=== PATIENT | male | born 1960 | race Caucasian/White ===

== ENCOUNTER 2020-07-12 04:23 | Inpatient (IN) | payer MEDICARE, OTHER ==
[~2020-07-12] VITALS: Ht 180.3 cm; Wt 124.7 kg
[2020-07-12] MEDS ORDERED: PIPERACILLIN/TAZOBACTAM 3.375 GM in SODIUM CHLORIDE 0.9% 50ML 50 ML IV STA (04:33)
[2020-07-12] MEDS ORDERED: SODIUM CHLORIDE 0.9% 1000ML 1,000 ML IV STA (04:33)
[2020-07-12 05:16] LABS: ABG HCO3 22 mmol/L (22-26); ABG PCO2 33 mmHg (35-45); ABG PH 7.43 (7.35-7.45); ABG PO2 74 mmHg (80-105); ABG TCO2 23
[2020-07-12 05:18] LABS: BASOPHILS # (AUTO) 0.1 (0.0-0.1); BASOPHILS % 0.4 % (0.0-1.0); EOSINOPHILS % 0.2 % (0.0-6.0); HEMATOCRIT 31.6 % (38.2-49.6); HEMOGLOBIN 10.4 g/dL (14.0-18.0); LYMPHOCYTES % 3.8 % (18.0-39.1); MEAN CORPUSCULAR HEMOGLOBIN 25.3 pg (28-32); MEAN CORPUSCULAR HGB CONC 32.9 g/dL (31-35); MEAN CORPUSCULAR VOLUME 76.9 fL (81-99); MONOCYTES # (AUTO) 1.1 (0.2-0.8); MONOCYTES % 4.5 % (4.4-11.3); NEUTROPHILS # (AUTO) 22.3 (2.1-6.9); NEUTROPHILS % 88.3 % (38.7-80.0); PLATELET COUNT 275 x10e3/uL (140-360); RED BLOOD COUNT 4.11 x10e6/uL (4.3-5.7); RED CELL DISTRIBUTION WIDTH 17.9 % (11.7-14.4)
[2020-07-12 05:40] LABS: ALBUMIN 2.7 g/dL (3.5-5.0); ALBUMIN/GLOBULIN RATIO 0.5 (0.8-2.0); ANION GAP 19.4 mmol/L (8-16); CALCIUM 8.8 mg/dL (8.4-10.2); CREATININE, SERUM 2.75 mg/dL (0.72-1.25); POTASSIUM 5.4 mmol/L (3.5-5.1)
[2020-07-12 05:47] LABS: CREATINE KINASE MB 2.9 ng/mL (0-5.0)
[2020-07-12 05:49] LABS: B-TYPE NATRIURETIC PEPTIDE2 171.9 pg/mL (0-100)
[2020-07-12 06:05] LABS: CLARITY,URINE CLOUDY (CLEAR); COLOR,URINE YELLOW (YELLOW); KETONES,URINE NEGATIVE (NEGATIVE); LEUKOCYTE ESTERASE ,URINE LARGE (NEGATIVE); NITRITE,URINE NEGATIVE (NEGATIVE); PROTEIN,URINE DIPSTICK 2+ (NEGATIVE); URINE UROBILINOGEN 0.2 mg/dL (0.2 - 1)
[2020-07-12 06:28] LABS: BACTERIA,URINE MANY /HPF; WBC,URINE (MAN) >50 /HPF (0-5)
[2020-07-12 06:29] LABS: EPITHELIAL CELLS,URINE FEW /LPF
[2020-07-12] MEDS ORDERED: SODIUM CHLORIDE 0.9% 1000ML 1,000 ML IV SCH (06:45)
[2020-07-12] MEDS ORDERED: ONDANSETRON HCL INJ 2MG/ML 2ML 2 MG/ML VIAL IV PRN ×2 (07:15→11:45)
[2020-07-12] MEDS ORDERED: MORPHINE SULFATE INJ 4 MG/ML INJ 1ML IV PRN (07:15)
[2020-07-12] MEDS ORDERED: SOD POLYSTYRENE SULFONATE SUSP 15 GM/60 ML BTL PO SCH (07:30)
[2020-07-12 08:00] LABS: ANISOCYTOSIS SLIGHT; BAND NEUTROPHILS % (MANUAL) 3 %; LYMPHOCYTES % (MANUAL) 5 % (19-48); MONOCYTES % (MANUAL) 6 % (3.4-9.0); NEUTROPHILS % (MANUAL) 86 % (40-74); PLATELET ESTIMATE ADEQUATE; PLATELET MORPHOLOGY COMMENT NORMAL; RBC MORPHOLOGY COMMENT NORMAL
[2020-07-12 08:01] LABS: MICROCYTOSIS SLIGHT
[2020-07-12] MEDS ORDERED: ALBUTEROL/IPRATROPIUM 3 ML NEB NEB PRN (11:45)
[2020-07-12] MEDS ORDERED: DIPHENHYDRAMINE HCL 25 MG CAP PO PRN (11:45)
[2020-07-12] MEDS ORDERED: POTASSIUM CHLORIDE 20 MEQ TAB CR PO PRN (11:45)
[2020-07-12] MEDS ORDERED: BENZONATATE 100 MG CAP PO PRN (11:45)
[2020-07-12] MEDS ORDERED: DOCUSATE SODIUM 100 MG CAP PO PRN (11:45)
[2020-07-12] MEDS ORDERED: HYDRALAZINE HCL 20 MG/ML VIAL IV PRN (11:45)
[2020-07-12] MEDS ORDERED: DEXTROSE 50% SYRINGE 50 ML IV PRN ×2 (11:45→14:15)
[2020-07-12 12:59] LABS: ANION GAP 15.8 mmol/L (8-16); CALCIUM 8.4 mg/dL (8.4-10.2); CREATININE, SERUM 2.14 mg/dL (0.72-1.25); POTASSIUM 4.8 mmol/L (3.5-5.1)
[2020-07-12] MEDS ORDERED: FUROSEMIDE INJ 10 MG/ML 2 ML VIAL IV ONE (13:00)
[2020-07-12 13:02] LABS: INR 0.92; PROTHROMBIN TIME 12.9 seconds (11.9-14.5)
[2020-07-12] MEDS ORDERED: MINERAL OIL 132 ML BTL PR ONE (13:15)
[2020-07-12] MEDS ORDERED: MEROPENEM 500 MG in SODIUM CHLORIDE 0.9% 50ML 50 ML IV SCH (14:00)
[2020-07-12] MEDS: METOCLOPRAMIDE HCL 10 MG/2ML VIAL IV SCH ×2 (14:11→21:50)
[2020-07-12] MEDS: LACTULOSE SYRUP 20 GM/30 ML UDC PO SCH ×2 (15:00→21:50)
[2020-07-12 15:51] VITALS: BP 148/79
[2020-07-12 15:58] VITALS: BP 145/79
[2020-07-12 16:00] VITALS: BP 145/79
[2020-07-12] MEDS ORDERED: DEXTROSE 5%/0.45% SOD CHL 1,000 ML IV ONE (16:00)
[2020-07-12] MEDS: DOCUSATE SODIUM 100 MG CAP PO SCH (16:08)
[2020-07-12] MEDS: INSULIN REGULAR, HUMAN 100 UNIT/1 ML 3ML VIAL SQ SCH ×2 (16:19→21:50)
[2020-07-12] MEDS ORDERED: ENOXAPARIN SOD INJ 40 MG/0.4 ML SYR SC SCH (17:00)
[2020-07-12] MEDS ORDERED: MS CONTIN15 MG PO (18:36)
[2020-07-12] MEDS ORDERED: BISACODYL5 MG PO (18:36)
[2020-07-12] MEDS ORDERED: AMITRIPTYLINE H25 MG PO (18:36)
[2020-07-12] MEDS ORDERED: LACTULOSE20 GM/30 M PO (18:36)
[2020-07-12] MEDS ORDERED: SIMETHICONE80 MG PO (18:36)
[2020-07-12] MEDS ORDERED: VENTOLIN HFA18 GM INH (18:36)
[2020-07-12] MEDS ORDERED: PROTONIX40 MG PO (18:36)
[2020-07-12] MEDS ORDERED: GABAPENTIN300 MG PO (18:36)
[2020-07-12] MEDS ORDERED: ZINC-22050 MG PO (18:36)
[2020-07-12] MEDS ORDERED: NOVOLOG100 UNIT/1 SC (18:36)
[2020-07-12] MEDS ORDERED: LANTUS 3ML100 UNITS/ SC ×2 (18:36)
[2020-07-12] MEDS ORDERED: IMODIUM A-D2 M2 PO (18:36)
[2020-07-12] MEDS ORDERED: FLOVENT HFA12 G1 INH (18:36)
[2020-07-12] MEDS ORDERED: GLIMEPIRIDE2 MG PO (18:36)
[2020-07-12] MEDS ORDERED: DOXYCYCLINE MO100 MG PO (18:36)
[2020-07-12] MEDS ORDERED: MORPHINE SULFAT30 M2 PO (18:36)
[2020-07-12] MEDS ORDERED: CYCLOBENZAPRINE5 MG PO (18:36)
[2020-07-12] MEDS ORDERED: FERROUS SULFAT325 MG PO (18:36)
[2020-07-12] MEDS ORDERED: SENNA LAX8.6 MG PO (18:36)
[2020-07-12] MEDS ORDERED: MULTIVITAMINS1 EAC6 PO (18:36)
[2020-07-12] MEDS ORDERED: AQUAPHOR99 GM TOP (18:36)
[2020-07-12] MEDS ORDERED: VITAMIN C500 MG PO (18:36)
[2020-07-12] MEDS ORDERED: OXYCODONE HCL5 MG PO (18:36)
[2020-07-12 20:00] VITALS: BP 141/66
[2020-07-12 21:00] VITALS: BP 141/66
[2020-07-12] MEDS ORDERED: SODIUM CHLORIDE 0.9% 250ML 250 ML ONE (21:58)
[2020-07-12] MEDS: MEROPENEM 1GM / NS 100ML 100 ML IV SCH (22:25)
[2020-07-13] VITALS (9 sets, daily range): BP systolic 127–156; BP diastolic 66–86
[2020-07-13] MEDS: PANTOPRAZOLE SOD 40 MG TABEC PO SCH (06:15)
[2020-07-13] MEDS: METOCLOPRAMIDE HCL 10 MG/2ML VIAL IV SCH ×3 (06:15→22:00)
[2020-07-13] MEDS: MEROPENEM 1GM / NS 100ML 100 ML IV SCH (06:15)
[2020-07-13 06:46] LABS: BASOPHILS # (AUTO) 0.1 (0.0-0.1); BASOPHILS % 0.3 % (0.0-1.0); EOSINOPHILS # (AUTO) 0.3 (0.0-0.4); EOSINOPHILS % 1.2 % (0.0-6.0); HEMATOCRIT 28.3 % (38.2-49.6); HEMOGLOBIN 9.3 g/dL (14.0-18.0); LYMPHOCYTES # (AUTO) 1.6 (1.0-3.2); LYMPHOCYTES % 7.4 % (18.0-39.1); MEAN CORPUSCULAR HEMOGLOBIN 25.3 pg (28-32); MEAN CORPUSCULAR HGB CONC 32.9 g/dL (31-35); MEAN CORPUSCULAR VOLUME 76.9 fL (81-99); MONOCYTES % 4.6 % (4.4-11.3); NEUTROPHILS # (AUTO) 17.6 (2.1-6.9); NEUTROPHILS % 84.6 % (38.7-80.0); PLATELET COUNT 263 x10e3/uL (140-360); RED BLOOD COUNT 3.68 x10e6/uL (4.3-5.7); RED CELL DISTRIBUTION WIDTH 18.3 % (11.7-14.4)
[2020-07-13 07:01] LABS: ANION GAP 16.6 mmol/L (8-16); CALCIUM 8.8 mg/dL (8.4-10.2); CREATININE, SERUM 1.38 mg/dL (0.72-1.25); POTASSIUM 3.6 mmol/L (3.5-5.1)
[2020-07-13 07:20] LABS: MAGNESIUM 1.8 MG/DL (1.3-2.1); PHOSPHORUS 4.7 MG/DL (2.3-4.7)
[2020-07-13] MEDS: INSULIN REGULAR, HUMAN 100 UNIT/1 ML 3ML VIAL SQ SCH ×4 (07:30→21:00)
[2020-07-13] MEDS: DOCUSATE SODIUM 100 MG CAP PO SCH ×2 (09:30→17:07)
[2020-07-13] MEDS: LACTULOSE SYRUP 20 GM/30 ML UDC PO SCH ×3 (09:31→21:00)
[2020-07-13] MEDS ORDERED: SODIUM HYPOCHLORITE 0.25% 480 ML SOLN IR ONE (11:00)
[2020-07-13] MEDS: FERROUS SULFATE 325 MG TAB PO SCH (12:00)
[2020-07-13] MEDS: VANCOMYCIN 1GM/NS 250 ML 250 ML IV SCH (12:14)
[2020-07-13] MEDS: MEROPENEM 500 MG in SODIUM CHLORIDE 0.9% 50ML 50 ML IV SCH ×2 (13:17→22:00)
[2020-07-13] MEDS: OXYCODONE HCL IR 5 MG TAB PO PRN (17:07)
[2020-07-13] MEDS ORDERED: INSULIN GLARGINE SC SCH (21:00)
[2020-07-13] MEDS: AMITRIPTYLINE HCL 25 MG TAB PO SCH (21:00)
[2020-07-13] MEDS: MORPHINE SULFATE 30 MG TAB ER PO SCH (21:00)
[2020-07-13] MEDS: INSULIN GLARGINE 100 UNITS/ML VIAL SQ SCH (21:00)
[2020-07-14] VITALS (8 sets, daily range): BP systolic 126–169; BP diastolic 70–84
[2020-07-14] MEDS: OXYCODONE HCL IR 5 MG TAB PO PRN ×2 (01:07→20:30)
[2020-07-14] MEDS: METOCLOPRAMIDE HCL 10 MG/2ML VIAL IV SCH ×3 (05:11→22:00)
[2020-07-14] MEDS: MEROPENEM 500 MG in SODIUM CHLORIDE 0.9% 50ML 50 ML IV SCH ×3 (05:11→22:00)
[2020-07-14] MEDS: INSULIN REGULAR, HUMAN 100 UNIT/1 ML 3ML VIAL SQ SCH ×4 (07:30→21:00)
[2020-07-14] MEDS: PANTOPRAZOLE SOD 40 MG TABEC PO SCH (08:00)
[2020-07-14] MEDS ORDERED: PANTOPRAZOLE SODIUM 40 MG SUSPDR.PKT PO SCH (09:00)
[2020-07-14] MEDS ORDERED: INSULIN GLARGINE SC SCH (09:00)
[2020-07-14] MEDS: LACTULOSE SYRUP 20 GM/30 ML UDC PO SCH ×3 (09:25→21:00)
[2020-07-14] MEDS: DOCUSATE SODIUM 100 MG CAP PO SCH ×2 (09:25→17:07)
[2020-07-14] MEDS: SENNOSIDES 8.6 MG TAB PO SCH (09:27)
[2020-07-14] MEDS: MORPHINE SULFATE 30 MG TAB ER PO SCH ×2 (09:27→21:00)
[2020-07-14] MEDS: MULTIVITAMINS/MINERALS TAB PO SCH (09:27)
[2020-07-14] MEDS: INSULIN GLARGINE 100 UNITS/ML VIAL SQ SCH ×2 (09:28→21:00)
[2020-07-14] MEDS: VANCOMYCIN 1GM/NS 250 ML 250 ML IV SCH (09:29)
[2020-07-14 11:07] LABS: BASOPHILS # (AUTO) 0.1 (0.0-0.1); BASOPHILS % 0.7 % (0.0-1.0); EOSINOPHILS # (AUTO) 0.3 (0.0-0.4); EOSINOPHILS % 2.9 % (0.0-6.0); HEMATOCRIT 28.9 % (38.2-49.6); LYMPHOCYTES # (AUTO) 1.7 (1.0-3.2); LYMPHOCYTES % 14.1 % (18.0-39.1); MEAN CORPUSCULAR HEMOGLOBIN 24.9 pg (28-32); MEAN CORPUSCULAR HGB CONC 31.1 g/dL (31-35); MEAN CORPUSCULAR VOLUME 79.8 fL (81-99); MONOCYTES # (AUTO) 0.8 (0.2-0.8); MONOCYTES % 6.5 % (4.4-11.3); NEUTROPHILS # (AUTO) 8.5 (2.1-6.9); PLATELET COUNT 240 x10e3/uL (140-360); RED BLOOD COUNT 3.62 x10e6/uL (4.3-5.7); RED CELL DISTRIBUTION WIDTH 18.5 % (11.7-14.4)
[2020-07-14 11:28] LABS: ANION GAP 13.7 mmol/L (8-16); BLOOD UREA NITROGEN 17 mg/dL (7-26); BUN/CREATININE RATIO 17 (6-25); CALCIUM 8.7 mg/dL (8.4-10.2); CARBON DIOXIDE 25 mmol/L (22-29); CHLORIDE 103 mmol/L (98-107); CREATININE, SERUM 1.02 mg/dL (0.72-1.25); EST GLOMERULAR FILTRATION RATE > 60 ML/MIN (60-); GLUCOSE 173 mg/dL (74-118); POTASSIUM 3.7 mmol/L (3.5-5.1); SODIUM 138 mmol/L (136-145)
[2020-07-14] MEDS ORDERED: ONDANSETRON HCL 4 MG ORAL DISINTEGRATING TAB PO PRN (16:15)
[2020-07-14] MEDS: NICOTINE 21 MG/EA PATCH TOP SCH (18:48)
[2020-07-14] MEDS: AMITRIPTYLINE HCL 25 MG TAB PO SCH (21:00)
[2020-07-15] VITALS (7 sets, daily range): BP systolic 134–171; BP diastolic 80–91
[2020-07-15] MEDS: MEROPENEM 500 MG in SODIUM CHLORIDE 0.9% 50ML 50 ML IV SCH ×3 (05:30→22:00)
[2020-07-15] MEDS: METOCLOPRAMIDE HCL 10 MG/2ML VIAL IV SCH ×3 (05:30→22:00)
[2020-07-15] MEDS: OXYCODONE HCL IR 5 MG TAB PO PRN ×2 (05:30→14:00)
[2020-07-15 06:32] LABS: BASOPHILS # (AUTO) 0.1 (0.0-0.1); BASOPHILS % 1.2 % (0.0-1.0); EOSINOPHILS # (AUTO) 0.4 (0.0-0.4); EOSINOPHILS % 3.9 % (0.0-6.0); HEMATOCRIT 31.9 % (38.2-49.6); HEMOGLOBIN 10.3 g/dL (14.0-18.0); LYMPHOCYTES # (AUTO) 2.1 (1.0-3.2); MEAN CORPUSCULAR HEMOGLOBIN 25.9 pg (28-32); MEAN CORPUSCULAR HGB CONC 32.3 g/dL (31-35); MEAN CORPUSCULAR VOLUME 80.4 fL (81-99); MONOCYTES # (AUTO) 0.9 (0.2-0.8); MONOCYTES % 7.7 % (4.4-11.3); NEUTROPHILS # (AUTO) 7.1 (2.1-6.9); NEUTROPHILS % 63.3 % (38.7-80.0); PLATELET COUNT 204 x10e3/uL (140-360); RED BLOOD COUNT 3.97 x10e6/uL (4.3-5.7); RED CELL DISTRIBUTION WIDTH 19.5 % (11.7-14.4)
[2020-07-15 06:48] LABS: ANION GAP 15.6 mmol/L (8-16); BLOOD UREA NITROGEN 10 mg/dL (7-26); BUN/CREATININE RATIO 13 (6-25); CARBON DIOXIDE 24 mmol/L (22-29); CHLORIDE 101 mmol/L (98-107); CREATININE, SERUM 0.77 mg/dL (0.72-1.25); EST GLOMERULAR FILTRATION RATE > 60 ML/MIN (60-); GLUCOSE 108 mg/dL (74-118); POTASSIUM 3.6 mmol/L (3.5-5.1); SODIUM 137 mmol/L (136-145)
[2020-07-15] MEDS: INSULIN REGULAR, HUMAN 100 UNIT/1 ML 3ML VIAL SQ SCH ×4 (07:30→21:00)
[2020-07-15] MEDS: INSULIN GLARGINE 100 UNITS/ML VIAL SQ SCH ×2 (09:00→21:00)
[2020-07-15] MEDS: MORPHINE SULFATE 30 MG TAB ER PO SCH ×2 (09:24→21:00)
[2020-07-15] MEDS: DOCUSATE SODIUM 100 MG CAP PO SCH ×2 (09:26→17:00)
[2020-07-15] MEDS: SENNOSIDES 8.6 MG TAB PO SCH (09:26)
[2020-07-15] MEDS: PANTOPRAZOLE SOD 40 MG TABEC PO SCH (09:26)
[2020-07-15] MEDS: MULTIVITAMINS/MINERALS TAB PO SCH (09:26)
[2020-07-15] MEDS: LACTULOSE SYRUP 20 GM/30 ML UDC PO SCH ×3 (09:26→21:00)
[2020-07-15] MEDS ORDERED: HALOPERIDOL LACTATE 5 MG/ML VIAL IM ONE ×3 (12:00→12:30)
[2020-07-15] MEDS ORDERED: HALOPERIDOL LACTATE 5 MG/ML VIAL ONE (12:32)
[2020-07-15] MEDS ORDERED: SODIUM CHLORIDE 0.9% 50ML 50 ML ONE (13:43)
[2020-07-15] MEDS ORDERED: SODIUM CHLORIDE 0.9% 250ML 250 ML ONE (13:47)
[2020-07-15] MEDS: FERROUS SULFATE 325 MG TAB PO SCH (13:59)
[2020-07-15] MEDS: RISPERIDONE 1 MG TAB PO SCH ×2 (14:30→21:00)
[2020-07-15] MEDS: NICOTINE 21 MG/EA PATCH TOP SCH (17:15)
[2020-07-15] MEDS: AMITRIPTYLINE HCL 25 MG TAB PO SCH (21:00)
[2020-07-16] VITALS (8 sets, daily range): BP systolic 132–153; BP diastolic 76–92
[2020-07-16] MEDS: OXYCODONE HCL IR 5 MG TAB PO PRN ×2 (05:14→13:38)
[2020-07-16] MEDS: MEROPENEM 500 MG in SODIUM CHLORIDE 0.9% 50ML 50 ML IV SCH ×3 (06:00→22:00)
[2020-07-16] MEDS: METOCLOPRAMIDE HCL 10 MG/2ML VIAL IV SCH ×3 (06:00→22:00)
[2020-07-16] MEDS: INSULIN REGULAR, HUMAN 100 UNIT/1 ML 3ML VIAL SQ SCH ×4 (07:30→22:05)
[2020-07-16] MEDS: PANTOPRAZOLE SOD 40 MG TABEC PO SCH (07:30)
[2020-07-16] MEDS: INSULIN GLARGINE 100 UNITS/ML VIAL SQ SCH ×2 (09:00→22:05)
[2020-07-16] MEDS: SENNOSIDES 8.6 MG TAB PO SCH (09:00)
[2020-07-16] MEDS: DOCUSATE SODIUM 100 MG CAP PO SCH ×2 (09:00→17:00)
[2020-07-16] MEDS: LACTULOSE SYRUP 20 GM/30 ML UDC PO SCH ×3 (09:00→21:00)
[2020-07-16] MEDS: MORPHINE SULFATE 30 MG TAB ER PO SCH ×2 (09:20→22:05)
[2020-07-16] MEDS: MULTIVITAMINS/MINERALS TAB PO SCH (09:32)
[2020-07-16] MEDS: RISPERIDONE 1 MG TAB PO SCH ×2 (09:32→22:05)
[2020-07-16] MEDS ORDERED: FOSFOMYCIN TROMETHAMINE 3 GM PACKET PO ONE (13:00)
[2020-07-16] MEDS: NICOTINE 21 MG/EA PATCH TOP SCH (17:30)
[2020-07-16] MEDS: AMITRIPTYLINE HCL 25 MG TAB PO SCH (22:05)
[2020-07-17] VITALS (9 sets, daily range): BP systolic 127–174; BP diastolic 76–96
[2020-07-17] MEDS: MEROPENEM 500 MG in SODIUM CHLORIDE 0.9% 50ML 50 ML IV SCH ×3 (05:32→23:32)
[2020-07-17] MEDS: METOCLOPRAMIDE HCL 10 MG/2ML VIAL IV SCH ×3 (05:32→22:50)
[2020-07-17] MEDS: PANTOPRAZOLE SOD 40 MG TABEC PO SCH (05:58)
[2020-07-17] MEDS: OXYCODONE HCL IR 5 MG TAB PO PRN ×2 (05:58→23:31)
[2020-07-17] MEDS: DOCUSATE SODIUM 100 MG CAP PO SCH ×2 (07:58→17:03)
[2020-07-17] MEDS: LACTULOSE SYRUP 20 GM/30 ML UDC PO SCH ×3 (07:59→20:47)
[2020-07-17] MEDS: MULTIVITAMINS/MINERALS TAB PO SCH (08:00)
[2020-07-17] MEDS: MORPHINE SULFATE 30 MG TAB ER PO SCH ×2 (08:00→20:47)
[2020-07-17] MEDS: SENNOSIDES 8.6 MG TAB PO SCH (08:00)
[2020-07-17] MEDS: RISPERIDONE 1 MG TAB PO SCH ×2 (08:01→20:47)
[2020-07-17] MEDS: INSULIN REGULAR, HUMAN 100 UNIT/1 ML 3ML VIAL SQ SCH ×4 (08:08→20:34)
[2020-07-17] MEDS: INSULIN GLARGINE 100 UNITS/ML VIAL SQ SCH ×2 (08:09→21:00)
[2020-07-17] MEDS: FERROUS SULFATE 325 MG TAB PO SCH (12:29)
[2020-07-17] MEDS: NICOTINE 21 MG/EA PATCH TOP SCH (17:03)
[2020-07-17] MEDS: AMITRIPTYLINE HCL 25 MG TAB PO SCH (20:46)
[2020-07-17] MEDS ORDERED: SODIUM CHLORIDE 0.9% 50ML 50 ML ONE (23:35)
[2020-07-18] VITALS (9 sets, daily range): BP systolic 124–156; BP diastolic 75–95
[2020-07-18] MEDS ORDERED: ZIPRASIDONE 20 MG VIAL IM STA (03:46)
[2020-07-18] MEDS: MEROPENEM 500 MG in SODIUM CHLORIDE 0.9% 50ML 50 ML IV SCH ×3 (06:00→22:30)
[2020-07-18] MEDS: METOCLOPRAMIDE HCL 10 MG/2ML VIAL IV SCH ×3 (06:00→22:30)
[2020-07-18 06:16] LABS: BASOPHILS # (AUTO) 0.1 (0.0-0.1); BASOPHILS % 0.8 % (0.0-1.0); EOSINOPHILS # (AUTO) 0.3 (0.0-0.4); EOSINOPHILS % 3.4 % (0.0-6.0); HEMOGLOBIN 9.2 g/dL (14.0-18.0); LYMPHOCYTES % 21.6 % (18.0-39.1); MEAN CORPUSCULAR HGB CONC 31.7 g/dL (31-35); MEAN CORPUSCULAR VOLUME 78.8 fL (81-99); MONOCYTES # (AUTO) 0.7 (0.2-0.8); MONOCYTES % 7.5 % (4.4-11.3); NEUTROPHILS # (AUTO) 5.4 (2.1-6.9); NEUTROPHILS % 59.1 % (38.7-80.0); PLATELET COUNT 217 x10e3/uL (140-360); RED BLOOD COUNT 3.68 x10e6/uL (4.3-5.7); RED CELL DISTRIBUTION WIDTH 17.1 % (11.7-14.4)
[2020-07-18 06:41] LABS: ANION GAP 12.2 mmol/L (8-16); BLOOD UREA NITROGEN 7 mg/dL (7-26); BUN/CREATININE RATIO 10 (6-25); CALCIUM 8.5 mg/dL (8.4-10.2); CARBON DIOXIDE 23 mmol/L (22-29); CHLORIDE 106 mmol/L (98-107); EST GLOMERULAR FILTRATION RATE > 60 ML/MIN (60-); GLUCOSE 104 mg/dL (74-118); POTASSIUM 3.2 mmol/L (3.5-5.1); SODIUM 138 mmol/L (136-145)
[2020-07-18] MEDS: INSULIN REGULAR, HUMAN 100 UNIT/1 ML 3ML VIAL SQ SCH ×4 (07:30→21:00)
[2020-07-18] MEDS: LACTULOSE SYRUP 20 GM/30 ML UDC PO SCH ×3 (08:57→21:00)
[2020-07-18] MEDS: MORPHINE SULFATE 30 MG TAB ER PO SCH ×2 (08:57→21:58)
[2020-07-18] MEDS: MULTIVITAMINS/MINERALS TAB PO SCH (08:57)
[2020-07-18] MEDS: DOCUSATE SODIUM 100 MG CAP PO SCH ×2 (08:57→16:44)
[2020-07-18] MEDS: PANTOPRAZOLE SOD 40 MG TABEC PO SCH (08:57)
[2020-07-18] MEDS: SERTRALINE HCL 50 MG TAB PO SCH (08:58)
[2020-07-18] MEDS: RISPERIDONE 1 MG TAB PO SCH ×2 (08:58→22:00)
[2020-07-18] MEDS: SENNOSIDES 8.6 MG TAB PO SCH (08:58)
[2020-07-18] MEDS: INSULIN GLARGINE 100 UNITS/ML VIAL SQ SCH ×2 (09:08→22:30)
[2020-07-18 09:16] LABS: BAND NEUTROPHILS % (MANUAL) 5 %; EOSINOPHILS % (MANUAL) 3 % (0-7); LYMPHOCYTES % (MANUAL) 19 % (19-48); MONOCYTES % (MANUAL) 5 % (3.4-9.0); NEUTROPHILS % (MANUAL) 68 % (40-74)
[2020-07-18] MEDS ORDERED: POTASSIUM CHLORIDE 20 MEQ TAB CR PO NR (12:00)
[2020-07-18] MEDS: NICOTINE 21 MG/EA PATCH TOP SCH (16:44)
[2020-07-18] MEDS: AMITRIPTYLINE HCL 25 MG TAB PO SCH (21:58)
[2020-07-18] MEDS: MELATONIN 5 MG TABLET PO PRN (21:59)
[2020-07-19] VITALS (9 sets, daily range): BP systolic 126–154; BP diastolic 66–84
[2020-07-19] MEDS: OXYCODONE HCL IR 5 MG TAB PO PRN (03:37)
[2020-07-19] MEDS: METOCLOPRAMIDE HCL 10 MG/2ML VIAL IV SCH ×3 (07:20→20:26)
[2020-07-19] MEDS: MEROPENEM 500 MG in SODIUM CHLORIDE 0.9% 50ML 50 ML IV SCH ×3 (07:20→20:26)
[2020-07-19] MEDS: INSULIN REGULAR, HUMAN 100 UNIT/1 ML 3ML VIAL SQ SCH ×4 (07:30→20:31)
[2020-07-19] MEDS: DOCUSATE SODIUM 100 MG CAP PO SCH ×2 (09:00→17:15)
[2020-07-19] MEDS: LACTULOSE SYRUP 20 GM/30 ML UDC PO SCH ×3 (09:00→20:26)
[2020-07-19] MEDS: SENNOSIDES 8.6 MG TAB PO SCH ×2 (09:00→17:15)
[2020-07-19] MEDS: SERTRALINE HCL 50 MG TAB PO SCH (11:25)
[2020-07-19] MEDS: RISPERIDONE 1 MG TAB PO SCH ×2 (11:26→20:26)
[2020-07-19] MEDS: MORPHINE SULFATE 30 MG TAB ER PO SCH ×2 (11:33→20:26)
[2020-07-19] MEDS: MULTIVITAMINS/MINERALS TAB PO SCH (11:33)
[2020-07-19] MEDS: INSULIN GLARGINE 100 UNITS/ML VIAL SQ SCH ×2 (11:44→20:40)
[2020-07-19] MEDS: PANTOPRAZOLE SOD 40 MG TABEC PO SCH (12:11)
[2020-07-19] MEDS: FERROUS SULFATE 325 MG TAB PO SCH (12:16)
[2020-07-19] MEDS: SODIUM HYPOCHLORITE 0.25% 480 ML SOLN IR SCH (17:15)
[2020-07-19] MEDS: NICOTINE 21 MG/EA PATCH TOP SCH (17:20)
[2020-07-19] MEDS: AMITRIPTYLINE HCL 25 MG TAB PO SCH (20:26)
[2020-07-19] MEDS: MELATONIN 5 MG TABLET PO PRN (21:19)
[2020-07-20] VITALS (7 sets, daily range): BP systolic 118–148; BP diastolic 63–110
[2020-07-20] MEDS: METOCLOPRAMIDE HCL 10 MG/2ML VIAL IV SCH ×3 (05:18→22:00)
[2020-07-20] MEDS: MEROPENEM 500 MG in SODIUM CHLORIDE 0.9% 50ML 50 ML IV SCH ×3 (05:18→22:00)
[2020-07-20] MEDS: INSULIN REGULAR, HUMAN 100 UNIT/1 ML 3ML VIAL SQ SCH ×4 (07:30→21:00)
[2020-07-20] MEDS: DOCUSATE SODIUM 100 MG CAP PO SCH ×2 (08:25→16:19)
[2020-07-20] MEDS: PANTOPRAZOLE SOD 40 MG TABEC PO SCH (08:25)
[2020-07-20] MEDS: SENNOSIDES 8.6 MG TAB PO SCH (08:26)
[2020-07-20] MEDS: SERTRALINE HCL 50 MG TAB PO SCH (08:26)
[2020-07-20] MEDS: MORPHINE SULFATE 30 MG TAB ER PO SCH ×2 (08:26→20:38)
[2020-07-20] MEDS: MULTIVITAMINS/MINERALS TAB PO SCH (08:26)
[2020-07-20] MEDS: RISPERIDONE 1 MG TAB PO SCH ×2 (08:26→20:38)
[2020-07-20] MEDS: SODIUM HYPOCHLORITE 0.25% 480 ML SOLN IR SCH (08:29)
[2020-07-20] MEDS: LACTULOSE SYRUP 20 GM/30 ML UDC PO SCH ×3 (08:29→20:38)
[2020-07-20] MEDS: INSULIN GLARGINE 100 UNITS/ML VIAL SQ SCH ×2 (08:32→21:00)
[2020-07-20] MEDS: NICOTINE 21 MG/EA PATCH TOP SCH (16:19)
[2020-07-20] MEDS: AMITRIPTYLINE HCL 25 MG TAB PO SCH (20:38)
[2020-07-21] VITALS (11 sets, daily range): BP systolic 114–150; BP diastolic 63–83
[2020-07-21] MEDS: METOCLOPRAMIDE HCL 10 MG/2ML VIAL IV SCH ×3 (05:52→22:00)
[2020-07-21] MEDS: MEROPENEM 500 MG in SODIUM CHLORIDE 0.9% 50ML 50 ML IV SCH ×3 (05:52→22:00)
[2020-07-21] MEDS: PANTOPRAZOLE SOD 40 MG TABEC PO SCH (08:05)
[2020-07-21] MEDS: MULTIVITAMINS/MINERALS TAB PO SCH (08:06)
[2020-07-21] MEDS: DOCUSATE SODIUM 100 MG CAP PO SCH ×2 (08:06→16:16)
[2020-07-21] MEDS: SENNOSIDES 8.6 MG TAB PO SCH (08:06)
[2020-07-21] MEDS: LACTULOSE SYRUP 20 GM/30 ML UDC PO SCH ×3 (08:06→22:00)
[2020-07-21] MEDS: SERTRALINE HCL 50 MG TAB PO SCH (08:06)
[2020-07-21] MEDS: RISPERIDONE 1 MG TAB PO SCH ×2 (08:06→22:00)
[2020-07-21] MEDS: SODIUM HYPOCHLORITE 0.25% 480 ML SOLN IR SCH (08:11)
[2020-07-21] MEDS: INSULIN REGULAR, HUMAN 100 UNIT/1 ML 3ML VIAL SQ SCH ×4 (09:08→22:00)
[2020-07-21] MEDS: INSULIN GLARGINE 100 UNITS/ML VIAL SQ SCH ×2 (09:08→22:00)
[2020-07-21] MEDS: ACETAMINOPHEN 325 MG TAB PO PRN ×2 (10:35→23:00)
[2020-07-21] MEDS: NICOTINE 21 MG/EA PATCH TOP SCH (16:16)
[2020-07-21] MEDS: FERROUS SULFATE 325 MG TAB PO SCH (16:16)
[2020-07-21] MEDS: AMITRIPTYLINE HCL 25 MG TAB PO SCH (22:00)
[2020-07-22 04:14] VITALS: BP 122/70
[2020-07-22] MEDS: METOCLOPRAMIDE HCL 10 MG/2ML VIAL IV SCH ×3 (05:56→22:36)
[2020-07-22] MEDS: MEROPENEM 500 MG in SODIUM CHLORIDE 0.9% 50ML 50 ML IV SCH ×3 (05:56→22:36)
[2020-07-22 08:14] VITALS: BP 133/54
[2020-07-22] MEDS: ACETAMINOPHEN 325 MG TAB PO PRN ×3 (08:15→22:47)
[2020-07-22] MEDS: SERTRALINE HCL 50 MG TAB PO SCH (08:25)
[2020-07-22] MEDS: DOCUSATE SODIUM 100 MG CAP PO SCH ×2 (08:25→16:27)
[2020-07-22] MEDS: PANTOPRAZOLE SOD 40 MG TABEC PO SCH (08:25)
[2020-07-22] MEDS: MULTIVITAMINS/MINERALS TAB PO SCH (08:25)
[2020-07-22] MEDS: RISPERIDONE 1 MG TAB PO SCH ×2 (08:25→21:03)
[2020-07-22] MEDS: LACTULOSE SYRUP 20 GM/30 ML UDC PO SCH ×4 (08:25→21:03)
[2020-07-22] MEDS: SENNOSIDES 8.6 MG TAB PO SCH (08:25)
[2020-07-22] MEDS: INSULIN REGULAR, HUMAN 100 UNIT/1 ML 3ML VIAL SQ SCH ×4 (08:29→21:04)
[2020-07-22] MEDS: INSULIN GLARGINE 100 UNITS/ML VIAL SQ SCH ×2 (08:29→21:04)
[2020-07-22] MEDS: SODIUM HYPOCHLORITE 0.25% 480 ML SOLN IR SCH (11:48)
[2020-07-22 11:50] VITALS: BP 129/66
[2020-07-22 15:49] VITALS: BP 103/91
[2020-07-22] MEDS: NICOTINE 21 MG/EA PATCH TOP SCH (16:27)
[2020-07-22] MEDS: MORPHINE SULFATE 30 MG TAB ER PO SCH (17:11)
[2020-07-22 20:00] VITALS: BP 122/68
[2020-07-22] MEDS: AMITRIPTYLINE HCL 25 MG TAB PO SCH (21:03)
[2020-07-23] VITALS (8 sets, daily range): BP systolic 104–131; BP diastolic 67–92
[2020-07-23] MEDS: ACETAMINOPHEN 325 MG TAB PO PRN ×2 (04:47→11:05)
[2020-07-23] MEDS: MEROPENEM 500 MG in SODIUM CHLORIDE 0.9% 50ML 50 ML IV SCH (06:16)
[2020-07-23] MEDS: METOCLOPRAMIDE HCL 10 MG/2ML VIAL IV SCH ×3 (06:16→21:43)
[2020-07-23] MEDS: MORPHINE SULFATE 30 MG TAB ER PO SCH ×2 (06:19→17:58)
[2020-07-23] MEDS: INSULIN REGULAR, HUMAN 100 UNIT/1 ML 3ML VIAL SQ SCH ×4 (07:30→21:00)
[2020-07-23] MEDS: INSULIN GLARGINE 100 UNITS/ML VIAL SQ SCH ×2 (09:00→21:00)
[2020-07-23] MEDS: SENNOSIDES 8.6 MG TAB PO SCH (09:00)
[2020-07-23] MEDS: LACTULOSE SYRUP 20 GM/30 ML UDC PO SCH ×3 (09:00→21:00)
[2020-07-23] MEDS: PANTOPRAZOLE SOD 40 MG TABEC PO SCH (09:53)
[2020-07-23] MEDS: DOCUSATE SODIUM 100 MG CAP PO SCH ×2 (09:53→17:00)
[2020-07-23] MEDS: SERTRALINE HCL 50 MG TAB PO SCH (09:54)
[2020-07-23] MEDS: RISPERIDONE 1 MG TAB PO SCH ×2 (09:54→20:59)
[2020-07-23] MEDS: SODIUM HYPOCHLORITE 0.25% 480 ML SOLN IR SCH (09:54)
[2020-07-23] MEDS: MULTIVITAMINS/MINERALS TAB PO SCH (09:54)
[2020-07-23] MEDS: FERROUS SULFATE 325 MG TAB PO SCH (12:00)
[2020-07-23] MEDS: NICOTINE 21 MG/EA PATCH TOP SCH (17:58)
[2020-07-23] MEDS: MELATONIN 5 MG TABLET PO PRN (20:59)
[2020-07-23] MEDS: AMITRIPTYLINE HCL 25 MG TAB PO SCH (20:59)
[2020-07-24] VITALS (8 sets, daily range): BP systolic 112–129; BP diastolic 68–75
[2020-07-24] MEDS: MORPHINE SULFATE 30 MG TAB ER PO SCH ×2 (06:01→17:28)
[2020-07-24] MEDS: METOCLOPRAMIDE HCL 10 MG/2ML VIAL IV SCH ×3 (06:01→21:03)
[2020-07-24] MEDS: INSULIN REGULAR, HUMAN 100 UNIT/1 ML 3ML VIAL SQ SCH ×3 (07:30→12:13)
[2020-07-24] MEDS: DOCUSATE SODIUM 100 MG CAP PO SCH ×2 (08:09→17:28)
[2020-07-24] MEDS: PANTOPRAZOLE SOD 40 MG TABEC PO SCH (08:09)
[2020-07-24] MEDS: RISPERIDONE 1 MG TAB PO SCH ×2 (08:10→21:03)
[2020-07-24] MEDS: MULTIVITAMINS/MINERALS TAB PO SCH (08:10)
[2020-07-24] MEDS: SERTRALINE HCL 50 MG TAB PO SCH (08:11)
[2020-07-24] MEDS: SENNOSIDES 8.6 MG TAB PO SCH (08:11)
[2020-07-24] MEDS: LACTULOSE SYRUP 20 GM/30 ML UDC PO SCH ×3 (09:00→21:00)
[2020-07-24] MEDS: INSULIN GLARGINE 100 UNITS/ML VIAL SQ SCH ×2 (09:12→21:07)
[2020-07-24] MEDS: SODIUM HYPOCHLORITE 0.25% 480 ML SOLN IR SCH (12:01)
[2020-07-24] MEDS: NICOTINE 21 MG/EA PATCH TOP SCH (17:28)
[2020-07-24] MEDS: AMITRIPTYLINE HCL 25 MG TAB PO SCH (21:03)
[2020-07-25] MEDS: METOCLOPRAMIDE HCL 10 MG/2ML VIAL IV SCH ×3 (05:13→21:36)
[2020-07-25] MEDS: MORPHINE SULFATE 30 MG TAB ER PO SCH ×2 (05:13→17:46)
[2020-07-25] MEDS: SENNOSIDES 8.6 MG TAB PO SCH (08:00)
[2020-07-25] MEDS: INSULIN REGULAR, HUMAN 100 UNIT/1 ML 3ML VIAL SQ SCH ×4 (08:00→21:34)
[2020-07-25] MEDS: RISPERIDONE 1 MG TAB PO SCH ×2 (08:00→20:06)
[2020-07-25] MEDS: PANTOPRAZOLE SOD 40 MG TABEC PO SCH (08:00)
[2020-07-25] MEDS: DOCUSATE SODIUM 100 MG CAP PO SCH ×2 (08:00→17:46)
[2020-07-25] MEDS: MULTIVITAMINS/MINERALS TAB PO SCH (08:00)
[2020-07-25] MEDS: LACTULOSE SYRUP 20 GM/30 ML UDC PO SCH ×3 (08:00→20:06)
[2020-07-25] MEDS: SERTRALINE HCL 50 MG TAB PO SCH (08:00)
[2020-07-25] MEDS: INSULIN GLARGINE 100 UNITS/ML VIAL SQ SCH ×2 (09:15→21:34)
[2020-07-25] MEDS: SODIUM HYPOCHLORITE 0.25% 480 ML SOLN IR SCH (09:55)
[2020-07-25] MEDS: FERROUS SULFATE 325 MG TAB PO SCH (11:52)
[2020-07-25] MEDS: NICOTINE 21 MG/EA PATCH TOP SCH (17:46)
[2020-07-25] MEDS: AMITRIPTYLINE HCL 25 MG TAB PO SCH (20:06)
[2020-07-25] MEDS: ACETAMINOPHEN 325 MG TAB PO PRN (20:08)
[2020-07-26] MEDS: METOCLOPRAMIDE HCL 10 MG/2ML VIAL IV SCH ×2 (05:59→15:11)
[2020-07-26] MEDS: MORPHINE SULFATE 30 MG TAB ER PO SCH (06:00)
[2020-07-26] MEDS: INSULIN REGULAR, HUMAN 100 UNIT/1 ML 3ML VIAL SQ SCH ×3 (07:30→16:30)
[2020-07-26] MEDS: MULTIVITAMINS/MINERALS TAB PO SCH (08:06)
[2020-07-26] MEDS: SERTRALINE HCL 50 MG TAB PO SCH (08:06)
[2020-07-26] MEDS: PANTOPRAZOLE SOD 40 MG TABEC PO SCH (08:06)
[2020-07-26] MEDS: RISPERIDONE 1 MG TAB PO SCH (08:06)
[2020-07-26] MEDS: DOCUSATE SODIUM 100 MG CAP PO SCH ×2 (08:06→17:00)
[2020-07-26] MEDS: INSULIN GLARGINE 100 UNITS/ML VIAL SQ SCH (08:11)
[2020-07-26] MEDS: LACTULOSE SYRUP 20 GM/30 ML UDC PO SCH ×2 (08:11→15:00)
[2020-07-26] MEDS: SENNOSIDES 8.6 MG TAB PO SCH (08:11)
[2020-07-26] MEDS: SODIUM HYPOCHLORITE 0.25% 480 ML SOLN IR SCH (11:50)
[2020-07-27] MEDS: INSULIN REGULAR, HUMAN 100 UNIT/1 ML 3ML VIAL SQ SCH (07:30)
[2020-07-27] MEDS: PANTOPRAZOLE SOD 40 MG TABEC PO SCH (07:30)
[2020-07-27] MEDS: LACTULOSE SYRUP 20 GM/30 ML UDC PO SCH ×2 (09:00→15:00)
[2020-07-27] MEDS: RISPERIDONE 1 MG TAB PO SCH (09:00)
[2020-07-27] MEDS: INSULIN GLARGINE 100 UNITS/ML VIAL SQ SCH (09:00)
[2020-07-27] MEDS: SODIUM HYPOCHLORITE 0.25% 480 ML SOLN IR SCH (09:00)
[2020-07-27] MEDS: SERTRALINE HCL 50 MG TAB PO SCH (09:00)
[2020-07-27] MEDS: SENNOSIDES 8.6 MG TAB PO SCH (09:00)
[2020-07-27] MEDS: MULTIVITAMINS/MINERALS TAB PO SCH (09:00)
[2020-07-27] MEDS: FERROUS SULFATE 325 MG TAB PO SCH (12:00)
[2020-07-27] MEDS: METOCLOPRAMIDE HCL 10 MG/2ML VIAL IV SCH (14:00)
[2020-07-27 15:51] VITALS: BP 119/67
[2020-07-27] MEDS: MORPHINE SULFATE 30 MG TAB ER PO SCH (16:48)
[2020-07-27] MEDS: NICOTINE 21 MG/EA PATCH TOP SCH ×2 (16:48→18:31)
[2020-07-27] MEDS: DOCUSATE SODIUM 100 MG CAP PO SCH (17:00)
== END 2020-07-27 19:02 | DRG 698 ==
LOC: ER 04:34 → ERHOLD 04:35 → MED/SURG3 14:50
PROVIDERS: ADMIT Internal Medicine; ATTEND Internal Medicine
PROC: 02HV33Z Insertion of Infusion Device into Superior Vena Cava, Percutaneous Approach (ICD-10-PCS; principal; 2020-07-12)
DX: T83.511A Infection and inflammatory reaction due to indwelling urethral catheter, initial encounter (principal); L89.154 Pressure ulcer of sacral region, stage 4; A40.8 Other streptococcal sepsis; G93.41 Metabolic encephalopathy; J69.0 Pneumonitis due to inhalation of food and vomit; E87.1 Hypo-osmolality and hyponatremia; N17.9 Acute kidney failure, unspecified; N13.6 Pyonephrosis; Z16.12 Extended spectrum beta lactamase (ESBL) resistance; F23 Brief psychotic disorder; G82.20 Paraplegia, unspecified; K72.90 Hepatic failure, unspecified without coma; K70.30 Alcoholic cirrhosis of liver without ascites; E66.01 Morbid (severe) obesity due to excess calories; G89.4 Chronic pain syndrome; Z72.0 Tobacco use; B96.4 Proteus (mirabilis) (morganii) as the cause of diseases classified elsewhere; Z86.16 Personal history of COVID-19; R53.81 Other malaise; K76.0 Fatty (change of) liver, not elsewhere classified; K52.9 Noninfective gastroenteritis and colitis, unspecified; Z91.81 History of falling; D63.8 Anemia in other chronic diseases classified elsewhere; Z68.38 Body mass index [BMI] 38.0-38.9, adult
CPT/HCPCS: 36415; 36568; 70450; 71045; 72125; 72192; 74176; 74470; 80048; 80053; 80202; 81001; 82140; 82550; 82553; 82805; 82948; 83036; 83605; 83735; 83880; 84100; 84295; 84484; 85025; 85610; 87040; 87086; 87186; 93005; 96372; 97139; 99251; 99285; J0360; J1630; J1815; J1817; J1940; J2185; J2270; J2405; J2543; J2765; J3370; J3486; J7030; J7050; Q0162; U0002